=== PATIENT | female | born 1995 | race American Indian/Alaskan Native ===

== ENCOUNTER 2020-05-09 20:58 | Outpatient (CLI) | payer MEDICAID ==
[2020-05-09] MEDS ORDERED: LACTATED RINGERS 1,000 ML IV ONE (21:20)
[2020-05-09 22:14] LABS: Bilirubin,Urine NEG (Negative); Blood,Urine SM (Negative); Color,Urine Yellow (Yellow)
[2020-05-09 22:19] LABS: Mucus,Urine 2+ /HPF
[2020-05-09 22:55] VITALS: BP 146/87
--- NOTE | 2020-05-10 00:05 | Event Note ---
Date: 05/10/20 Provider was informed of pt blood pressures after pt had been discharged. Pt will need to return to the hospital for evaluation of elevated blood pressures and possible admission for 24hr urine collection if bps still elevated. This was not related to provider at time pt was presented by triage nurse hence pt being discharged. Review of the chart noted all blood pressures were elevated.
== END 2020-05-09 23:30 | disposition home or self-care (01) ==
LOC: TRG 20:58 → APU 21:01 → TRG 23:30
PROVIDERS: ATTEND Obstetrics & Gynecology
DX: O26.893 Other specified pregnancy related conditions, third trimester (principal); R10.30 Lower abdominal pain, unspecified; M54.5 Low back pain; R03.0 Elevated blood-pressure reading, without diagnosis of hypertension; O47.03 False labor before 37 completed weeks of gestation, third trimester; Z3A.36 36 weeks gestation of pregnancy
CPT/HCPCS: 59025; 81001; 87086; 96360; J7120; Q0177

== ENCOUNTER 2020-05-25 16:44 | Inpatient (IN) | payer MEDICAID ==
[2020-05-25] MEDS ORDERED: fentaNYL 100 MCG/2 ML INJ IV PRN (18:38)
[2020-05-25] MEDS ORDERED: MINERAL OIL 30 ML ORAL LIQD PO PRN (18:38)
[2020-05-25] MEDS ORDERED: DINOPROSTONE 10 MG VAG SUPP VG NR (18:38)
[2020-05-25] MEDS ORDERED: miSOPROStol 200 MCG TAB PR PRN (18:38)
[2020-05-25] MEDS ORDERED: TERBUTALINE 1 MG/1 ML INJ SUB-Q PRN (18:38)
[2020-05-25] MEDS ORDERED: METHYLERGONOVINE MALEATE 0.2 MG/ML VIAL IM PRN (18:38)
[2020-05-25] MEDS ORDERED: ePHEDrine SULFATE 50 MG/1 ML INJ IV PRN (18:38)
[2020-05-25] MEDS ORDERED: ONDANSETRON 4 MG/2 ML INJ IV PRN (18:38)
[2020-05-25] MEDS ORDERED: PROMETHAZINE 25 MG TAB PO PRN (18:38)
[2020-05-25] MEDS ORDERED: NALOXONE 0.4 MG/1 ML INJ IV PRN (18:38)
[2020-05-25] MEDS ORDERED: OXYTOCIN 10 UNIT/1 ML INJ IM PRN (18:38)
[2020-05-25] MEDS ORDERED: CARBOPROST TROMETHAMINE 250 MCG/1 ML INJ IM PRN (18:38)
[2020-05-25] MEDS ORDERED: LOPERAMIDE 2 MG CAP PO PRN (18:38)
[2020-05-25] MEDS ORDERED: ACETAMINOPHEN 325 MG TAB PO PRN (18:38)
--- NOTE | 2020-05-25 18:38 | History and Physical Report ---
History of Present Illness Date of examination: 05/25/20 (24 hr urine total protein result of 461 in the office, elevated BP's) Date of admission: 05/25/2020 Chief complaint: I was told to come because I had too much protein in my urine. History of present illness: Called and told to come in because of 24 hr urine total protein result of 461 and elevated blood pressures. EDC Confirmation: 06/03/2020 Gestational Age: 38.5 wks on admission. Past History : 2 Term Births: 0 Premature Births: 1 Living Children: 1 Para: 1 Mult. Births: 0 Prev : 0 Aborta: 0 Elect. Ab: 0 Spont. Ab: 0 Ectopics: 0 # 1 Delivery date: 2018 Weeks Gestation: 34+0 labor: yes Delivery type: Delivery location: [facility] [place] Infant Sex: Male weight: 4#3 Comments: PPROM Past Medical History: Negative Past Medical History Past Surgical History: negative Past Medical History Anesthesia Complications: negative Anemia: negative Autoimmune Disorder: negative Bleeding Disorder: negative Blood Transfusions: negative Breast Disease: negative Diabetes: negative Heart Disease: negative Hypertension: negative Hepatitis/Liver Disease: negative Kidney Disease/UTI: negative Neurologic/Epilepsy/Migraines: negative Phlebitis/Varicosities: negative Psychiatric: negative Pulmonary Disease/Asthma: negative Thyroid Disease: negative Hospitalizations: negative Surgery (Non-metal bumper): negative Abnormal PAP: negative HITESH Exposure: negative Infertility: negative Uterine Anomaly: negative Uterine Surgery (not C/S): negative Other Gynecologic Problems: negative Infection History Hx of STD: none HIV Risk Eval: no Hepatitis B Risk Eval: low risk Personal hx. of genital herpes: no Partner hx. of genital herpes: no Rash, Viral, or Febrile illness since last LMP? no Varicella/Chicken Pox Status: Immunized Genetic History Congenital Heart Defect: Mom: no Dad: no Rima Disease: Mom: no Dad: no Thalassemia Mom: no Dad: no Neural Tube Defect Mom: no Dad: no Down's Syndrome Mom: no Dad: no Gonzalo-Sachs Mom: no Dad: no Sickle Cell Disease/Trait Mom: no Dad: no Hemophilia Mom: no Dad: no Muscular Dystrophy Mom: no Dad: no Cystic Fibrosis Mom: no Dad: no [place] Chorea Mom: no Dad: no Mental Retardation Mom: no Dad: no Fragile X Mom: no Dad: no Other Genetic/Chromosomal Disorder Mom: no Dad: no Child w/other defect Mom: no Dad: no Enviromental Exposures Xray Exposure: no Medication, drug, or alcohol use since LMP: no Chemical/Other Exposure: no Exposure to Cat Liter: no Hx of Parvovirus (Fifth Disease): no Occupational Exposure to Children: none Current Allergies: * TYLENOL BRAND ? (Critical) Past History Past Medical History: no pertinent history Past Surgical History: no surgical history Family/Genetic History: none Social history: no significant social history - Obstetrical History Expected Date of Delivery: 06/03/20 Actual Gestation: 38 Week(s) 5 Day(s) : 2 Para: 1 Hx # Term Pregnancies: 0 Number of Pregnancies: 1 Spontaneous Abortions: 0 Induced : 0 Number of Living Children: 1 Medications and Allergies Allergies Allergy/AdvReac Type Severity Reaction Status Date / Time acetaminophen [From Tylenol] Allergy Hives Verified 05/09/20 21:20 Home Medications Medication Instructions Recorded Confirmed Last Taken Type No Known Home Medications [No 05/25/20 05/25/20 Unknown History Reported Home Medications] Review of Systems All systems: negative - Vital Signs Vital signs: Vital Signs Pulse BP 75 166/89 05/25/20 17:28 05/25/20 17:28 Temp Pulse Resp BP Pulse Ox 98.9 F 82 157/86 05/25/20 17:30 05/25/20 18:22 05/25/20 18:22 Pt denies PATINO, blurred vision, spots before her eyes, chest pain, shortness of breath, and upper abdominal pain. - Physical Exam Breasts: Positive: deferred Cardiovascular: Regular rate Lungs: Positive: Normal air movement Abdomen: Positive: normal appearance, soft Uterus: Positive: normal size (For 38 wks gestation. ) Extremities: Positive: normal Deep Tendon Reflex Grade: Normal +2 - Obstetrical FHR: category 1 Cervical Dilatation: 1 (per digital photographic printer) Cervical Effacement Percentage: 20 station: -3 Uterine Contraction Pattern: Irregular Uterine Tone Measurement Phase: Resting Uterine Contraction Intensity: Mild Results Result Diagrams: 05/25/20 19:16 05/25/20 18:38 GBS NEGATIVE HBsAg Screen Negative Negative *1 RPR Non Reactive Non Reactive *2 Rubella Antibodies, IgG 1.40 index Immune >0.99 *3 Non-immune <0.90 Equivocal 0.90 - 0.99 Immune >0.99 ABO Grouping O *4 Rh Factor Negative *5 Antibody Screen Negative Negative *6 Tests: (3) HB Solu + Rflx Fra (991972) Hemoglobin (Hgb) Solubility Negative Negative *55 Tests: (4) HIV Ag/Ab with Reflex (235182) HIV Screen 4th Generation wRfx Non Reactive Non Reactive *56 Tests: (5) HCV Ab w/Rflx to Verification ([id number]) ! HCV Ab <0.1 s/co ratio 0.0-0.9 *57 Tests: (6) Comment: ([id number]) ! Comment: SPRCS *58 Non reactive HCV antibody screen is consistent with no HCV infection, unless recent infection is suspected or other evidence exists to indicate HCV infection. Assessment and Plan - Patient Problems (1) Pre-eclampsia in third trimester Onset Date: ~05/25/20 Current Visit: Yes Status: Acute Plan to address problem: Admit to labor and delivery for IOL. Draw Pre eclampsia labs. Cervidil to start IOL. Will hold magnesium infusion for now. (2) with 38 completed weeks gestation Current Visit: Yes Status: Acute Plan to address problem: Continuous EFM.
[2020-05-25] MEDS ORDERED: LACTATED RINGERS 1,000 ML IV SCH (18:45)
[2020-05-25] MEDS ORDERED: OXYTOCIN DRIP 30 UNITS/500 ML BAG IV SCH (19:00)
[2020-05-25 19:25] LABS: Hematocrit 33.3 % (30.3-42.9); Hemoglobin 11.3 gm/dl (10.1-14.3); Mean Corpuscular HGB Conc 34 % (30-34); Mean Corpuscular Volume 84 fl (79-97); Platelet Count 161 K/mm3 (140-440); Red Blood Count 3.98 M/mm3 (3.65-5.03); Red Cell Distribution Width 13.8 % (13.2-15.2)
[2020-05-25] MEDS ORDERED: hydrALAZINE 20 MG/1 ML INJ IV PRN ×2 (19:49→21:10)
[2020-05-25 19:50] LABS: Blood Urea Nitrogen 6 mg/dL (7-17); Hemolysis Index 1; Uric Acid 5.3 mg/dL (3.5-7.6)
[2020-05-25 19:51] LABS: BUN/Creatinine Ratio 12
[2020-05-25 20:06] LABS: Alanine Aminotransferase 14 units/L (7-56)
[2020-05-25] MEDS: LACTATED RINGERS 1,000 ML IV SCH ×2 (21:11→23:48)
[2020-05-25] MEDS ORDERED: POTASSIUM CHLORIDE ER 20 MEQ TAB PO ONE (21:30)
--- NOTE | 2020-05-25 22:28 | Ultrasound Report ---
US OB limited INDICATION: Evaluate presentation. COMPARISON: None available. FINDINGS: A single live intrauterine is seen in cephalic presentation with a heart rate of 141 bpm. IMPRESSION: Cephalic presentation of a single live intrauterine . Signer Name: Alo Loomis MD Signed: 05/25/2020 10:24 PM Workstation Name: [id number]
[2020-05-26] MEDS ORDERED: NALOXONE 2 MG/2 ML INJ IV PRN (02:17)
[2020-05-26] MEDS ORDERED: ePHEDrine SULFATE 50 MG/1 ML INJ IV PRN (02:17)
--- NOTE | 2020-05-26 02:19 | Anesthesia Consultation ---
Anesthesia Consult and Med Hx Date of service: 05/26/20 - Airway Anesthetic Teeth Evaluation: Good ROM Head & Neck: Adequate Mental/Hyoid Distance: Adequate Mallampati Class: Class II Intubation Access Assessment: Probably Good - Pulmonary Exam CTA: Yes - Cardiac Exam Cardiac Exam: RRR - Pre-Operative Health Status ASA Pre-Surgery Classification: ASA3 Proposed Anesthetic Plan: Epidural - Pulmonary Hx Asthma: No COPD: No Hx Pneumonia: No - Cardiovascular System Hx Hypertension: Yes - Central Nervous System Hx Seizures: No Hx Psychiatric Problems: No - Endocrine Hx Renal Disease: No Hx End Stage Renal Disease: No Hx Hypothyroidism: No Hx Hyperthyroidism: No - Hematic Hx Anemia: No Hx Sickle Cell Disease: No - Other Systems Hx Alcohol Use: No
[2020-05-26] MEDS ORDERED: OXYTOCIN DRIP 30,000 MILLIUNITS/500 ML BAG IV ONE (02:35)
--- NOTE | 2020-05-26 02:35 | Progress Note ---
Assessment and Plan A: 24 y.o. @ 38.6 wks, IOL d/t pre eclampsia. Cervical exam: /2. SROM @ 0120 am for clear fluid. P: Pt sitting up for epidural placement. Pitocin per protocol. Anticipate . - Patient Problems (1) Pre-eclampsia in third trimester Onset Date: ~05/25/20 Current Visit: Yes Status: Acute (2) with 38 completed weeks gestation Current Visit: Yes Status: Acute Subjective - Subjective Date of service: 05/26/20 Principal diagnosis: IUP @ 38.6 wks, IOL d/t pre eclampsia Patient reports: new complaints, loss of fluid (SROM clear fluid @ 0120 am.), contractions Objective - Vital Signs Vital Signs: Vital Signs - 12hr 05/25/20 05/25/20 05/25/20 17:28 17:30 18:22 Temperature 98.9 F Pulse Rate 75 82 Blood Pressure 166/89 157/86 O2 Sat by Pulse Oximetry 05/25/20 05/25/20 05/25/20 20:15 20:54 21:00 Temperature 98.4 F Pulse Rate 68 77 Blood Pressure 128/70 O2 Sat by Pulse 100 Oximetry 05/25/20 05/25/20 05/25/20 21:05 21:10 21:15 Temperature Pulse Rate 93 H 71 77 Blood Pressure O2 Sat by Pulse 100 100 100 Oximetry 05/25/20 05/25/20 05/25/20 21:20 21:25 21:30 Temperature Pulse Rate 82 75 72 Blood Pressure 151/86 O2 Sat by Pulse 100 100 100 Oximetry 05/25/20 05/25/20 05/25/20 21:35 21:40 21:45 Temperature Pulse Rate 87 70 80 Blood Pressure O2 Sat by Pulse 100 100 100 Oximetry 05/25/20 05/25/20 05/25/20 21:50 21:54 21:55 Temperature Pulse Rate 73 78 77 Blood Pressure 141/81 O2 Sat by Pulse 99 99 Oximetry 05/25/20 05/25/20 05/25/20 22:00 22:05 22:10 Temperature Pulse Rate 87 72 70 Blood Pressure O2 Sat by Pulse 100 100 100 Oximetry 05/25/20 05/25/20 05/25/20 22:15 22:20 22:24 Temperature Pulse Rate 72 108 H 84 Blood Pressure 139/79 O2 Sat by Pulse 100 100 Oximetry 05/25/20 05/25/20 05/25/20 22:25 22:30 22:35 Temperature Pulse Rate 89 67 69 Blood Pressure O2 Sat by Pulse 100 100 100 Oximetry 05/25/20 05/25/20 05/25/20 22:40 22:45 22:50 Temperature Pulse Rate 72 75 80 Blood Pressure O2 Sat by Pulse 100 100 100 Oximetry 05/25/20 05/25/20 05/25/20 22:54 22:55 23:00 Temperature Pulse Rate 76 73 84 Blood Pressure 137/81 O2 Sat by Pulse 100 100 Oximetry 05/25/20 05/25/20 05/25/20 23:05 23:10 23:48 Temperature Pulse Rate 77 75 81 Blood Pressure 156/89 O2 Sat by Pulse 100 100 Oximetry 05/25/20 05/25/20 05/25/20 23:49 23:54 23:55 Temperature Pulse Rate 73 73 75 Blood Pressure 153/82 145/83 O2 Sat by Pulse 99 100 Oximetry 05/25/20 05/26/20 05/26/20 23:59 00:04 00:09 Temperature Pulse Rate 80 77 77 Blood Pressure O2 Sat by Pulse 100 100 100 Oximetry 05/26/20 05/26/20 05/26/20 00:14 00:15 00:19 Temperature 97.9 F Pulse Rate 74 82 Blood Pressure O2 Sat by Pulse 100 99 Oximetry 05/26/20 05/26/20 05/26/20 00:21 00:24 00:29 Temperature Pulse Rate 86 91 H 82 Blood Pressure O2 Sat by Pulse 90 99 99 Oximetry 05/26/20 05/26/20 05/26/20 00:34 00:39 00:44 Temperature Pulse Rate 73 73 86 Blood Pressure O2 Sat by Pulse 98 98 99 Oximetry 05/26/20 05/26/20 05/26/20 00:49 00:54 00:59 Temperature Pulse Rate 82 83 96 H Blood Pressure O2 Sat by Pulse 98 99 99 Oximetry 05/26/20 05/26/20 05/26/20 01:04 01:09 01:14 Temperature Pulse Rate 86 84 80 Blood Pressure O2 Sat by Pulse 99 99 99 Oximetry 05/26/20 05/26/20 05/26/20 01:38 01:43 01:48 Temperature Pulse Rate 89 83 92 H Blood Pressure O2 Sat by Pulse 100 100 100 Oximetry 05/26/20 05/26/20 05/26/20 01:53 01:58 02:03 Temperature Pulse Rate 80 78 72 Blood Pressure O2 Sat by Pulse 100 99 100 Oximetry 05/26/20 05/26/20 05/26/20 02:08 02:13 02:18 Temperature Pulse Rate 69 72 72 Blood Pressure O2 Sat by Pulse 100 100 100 Oximetry 05/26/20 05/26/20 05/26/20 02:22 02:23 02:24 Temperature Pulse Rate 68 68 67 Blood Pressure 172/89 O2 Sat by Pulse 100 91 Oximetry 05/26/20 02:28 Temperature Pulse Rate 80 Blood Pressure O2 Sat by Pulse 100 Oximetry - Exam Breasts: deferred Abdomen: Present: normal appearance Vulva: both: normal Uterus: Present: normal FHR: category 1 Uterine Contraction Monitor Mode: External Cervical Dilatation: 4 Cervical Effacement Percentage: 70 station: -2 Uterine Contraction Pattern: Regular Uterine Tone Measurement Phase: Resting Uterine Contraction Intensity: Moderate - Labs Labs: Abnormal Labs 05/25/20 18:38 Sodium 134 L Potassium 3.0 L BUN 6 L Creatinine 0.5 L Laboratory Results - last 24 hr 05/25/20 05/25/20 05/25/20 18:38 18:38 19:05 WBC RBC Hgb Hct MCV MCH MCHC RDW Plt Count Sodium 134 L Potassium 3.0 L Chloride 98.4 Carbon Dioxide 23 Anion Gap 16 BUN 6 L Creatinine 0.5 L Estimated GFR > 60 BUN/Creatinine Ratio 12 Glucose 75 Uric Acid 5.3 Calcium 9.0 Magnesium 1.70 AST 25 ALT 14 Syphilis IgG Antibody Nonreactive Blood Type Antibody Screen 05/25/20 05/25/20 19:06 19:16 WBC 11.0 RBC 3.98 Hgb 11.3 Hct 33.3 MCV 84 MCH 28 MCHC 34 RDW 13.8 Plt Count 161 Sodium Potassium Chloride Carbon Dioxide Anion Gap BUN Creatinine Estimated GFR BUN/Creatinine Ratio Glucose Uric Acid Calcium Magnesium AST ALT Syphilis IgG Antibody Blood Type O NEGATIVE Antibody Screen Negative
--- NOTE | 2020-05-26 02:48 | Progress Note ---
Labor Epidural - Labor Epidural Start Time: 02:33 Stop Time: 02:39 Performed by:: JAIRON JOHNSON Procedure: Patient is requesting epidural for labor pain. H&P, and labs reviewed. Procedure explained, questions answered, consent obtained. Patient in sitting position with blood pressure cuff and pulse ox on and working. Timeout performed immediately before start of procedure. Sterile chlorahexadine 0.5% prep/drape. 3 mL 1% lidocaine skin wheal at L[3]-L[4]. 18-gauge Tuohy epidural needle advanced to [id number] with saline at [7] cm. Epidural dexmedetomidine [30] mcg administered. Epidural catheter advanced to [12] cm, positive for blood. Inserted at L4-5, catheter advanced to 12 cm, negative for blood and csf, negative test dose 3 ml 1.5% lidocaine with epinephrine. Sterile steri-strips and tegaderm applied, followed by tape reinforcement. Patient tolerated procedure well.
[2020-05-26] MEDS ORDERED: fentaNYL-BUPIV 2 MCG/ML-0.125% 200 MCG/100 ML BAG EPIDURAL SCH (03:00)
--- NOTE | 2020-05-26 04:44 | Progress Note ---
Assessment and Plan A: 24 y.o. @ 38.6 wks, IOL d/t pre eclampsia. Cervical exam . FSE and IUPC placed. P: Initiate Pitocin. Continue to monitor blood pressures. Anticipate . - Patient Problems (1) Pre-eclampsia in third trimester Onset Date: ~05/25/20 Current Visit: Yes Status: Acute (2) with 38 completed weeks gestation Current Visit: Yes Status: Acute Subjective - Subjective Date of service: 05/26/20 (Internals placed) Principal diagnosis: IUP @ 38.6 wks, IOL d/t pre eclampsia Objective - Vital Signs Vital Signs: Vital Signs - 12hr 05/25/20 05/25/20 05/25/20 17:28 17:30 18:22 Temperature 98.9 F Pulse Rate 75 82 Blood Pressure 166/89 157/86 O2 Sat by Pulse Oximetry 05/25/20 05/25/20 05/25/20 20:15 20:54 21:00 Temperature 98.4 F Pulse Rate 68 77 Blood Pressure 128/70 O2 Sat by Pulse 100 Oximetry 05/25/20 05/25/20 05/25/20 21:05 21:10 21:15 Temperature Pulse Rate 93 H 71 77 Blood Pressure O2 Sat by Pulse 100 100 100 Oximetry 05/25/20 05/25/20 05/25/20 21:20 21:25 21:30 Temperature Pulse Rate 82 75 72 Blood Pressure 151/86 O2 Sat by Pulse 100 100 100 Oximetry 05/25/20 05/25/20 05/25/20 21:35 21:40 21:45 Temperature Pulse Rate 87 70 80 Blood Pressure O2 Sat by Pulse 100 100 100 Oximetry 05/25/20 05/25/20 05/25/20 21:50 21:54 21:55 Temperature Pulse Rate 73 78 77 Blood Pressure 141/81 O2 Sat by Pulse 99 99 Oximetry 05/25/20 05/25/20 05/25/20 22:00 22:05 22:10 Temperature Pulse Rate 87 72 70 Blood Pressure O2 Sat by Pulse 100 100 100 Oximetry 05/25/20 05/25/20 05/25/20 22:15 22:20 22:24 Temperature Pulse Rate 72 108 H 84 Blood Pressure 139/79 O2 Sat by Pulse 100 100 Oximetry 05/25/20 05/25/20 05/25/20 22:25 22:30 22:35 Temperature Pulse Rate 89 67 69 Blood Pressure O2 Sat by Pulse 100 100 100 Oximetry 05/25/20 05/25/20 05/25/20 22:40 22:45 22:50 Temperature Pulse Rate 72 75 80 Blood Pressure O2 Sat by Pulse 100 100 100 Oximetry 05/25/20 05/25/20 05/25/20 22:54 22:55 23:00 Temperature Pulse Rate 76 73 84 Blood Pressure 137/81 O2 Sat by Pulse 100 100 Oximetry 05/25/20 05/25/20 05/25/20 23:05 23:10 23:48 Temperature Pulse Rate 77 75 81 Blood Pressure 156/89 O2 Sat by Pulse 100 100 Oximetry 05/25/20 05/25/20 05/25/20 23:49 23:54 23:55 Temperature Pulse Rate 73 73 75 Blood Pressure 153/82 145/83 O2 Sat by Pulse 99 100 Oximetry 05/25/20 05/26/20 05/26/20 23:59 00:04 00:09 Temperature Pulse Rate 80 77 77 Blood Pressure O2 Sat by Pulse 100 100 100 Oximetry 05/26/20 05/26/20 05/26/20 00:14 00:15 00:19 Temperature 97.9 F Pulse Rate 74 82 Blood Pressure O2 Sat by Pulse 100 99 Oximetry 05/26/20 05/26/20 05/26/20 00:21 00:24 00:29 Temperature Pulse Rate 86 91 H 82 Blood Pressure O2 Sat by Pulse 90 99 99 Oximetry 05/26/20 05/26/20 05/26/20 00:34 00:39 00:44 Temperature Pulse Rate 73 73 86 Blood Pressure O2 Sat by Pulse 98 98 99 Oximetry 05/26/20 05/26/20 05/26/20 00:49 00:54 00:59 Temperature Pulse Rate 82 83 96 H Blood Pressure O2 Sat by Pulse 98 99 99 Oximetry 05/26/20 05/26/20 05/26/20 01:04 01:09 01:14 Temperature Pulse Rate 86 84 80 Blood Pressure O2 Sat by Pulse 99 99 99 Oximetry 05/26/20 05/26/20 05/26/20 01:38 01:43 01:48 Temperature Pulse Rate 89 83 92 H Blood Pressure O2 Sat by Pulse 100 100 100 Oximetry 05/26/20 05/26/20 05/26/20 01:53 01:58 02:03 Temperature Pulse Rate 80 78 72 Blood Pressure O2 Sat by Pulse 100 99 100 Oximetry 05/26/20 05/26/20 05/26/20 02:08 02:13 02:18 Temperature Pulse Rate 69 72 72 Blood Pressure O2 Sat by Pulse 100 100 100 Oximetry 05/26/20 05/26/20 05/26/20 02:22 02:23 02:24 Temperature Pulse Rate 68 68 67 Blood Pressure 172/89 O2 Sat by Pulse 100 91 Oximetry 05/26/20 05/26/20 05/26/20 02:28 02:33 02:37 Temperature Pulse Rate 80 82 86 Blood Pressure 160/97 O2 Sat by Pulse 100 100 Oximetry 05/26/20 05/26/20 05/26/20 02:38 02:39 02:41 Temperature Pulse Rate 81 84 78 Blood Pressure 155/91 159/92 O2 Sat by Pulse 100 Oximetry 05/26/20 05/26/20 05/26/20 02:44 02:45 02:47 Temperature Pulse Rate 73 74 67 Blood Pressure 167/95 158/90 151/90 O2 Sat by Pulse 100 Oximetry 05/26/20 05/26/20 05/26/20 02:49 02:54 02:55 Temperature Pulse Rate 72 72 71 Blood Pressure 169/95 O2 Sat by Pulse 100 100 Oximetry 05/26/20 05/26/20 05/26/20 02:59 03:00 03:04 Temperature Pulse Rate 70 68 64 Blood Pressure 163/87 O2 Sat by Pulse 100 100 Oximetry 05/26/20 05/26/20 05/26/20 03:05 03:09 03:14 Temperature Pulse Rate 63 74 70 Blood Pressure 160/90 153/87 O2 Sat by Pulse 100 100 Oximetry 05/26/20 05/26/20 05/26/20 03:15 03:19 03:21 Temperature Pulse Rate 77 82 63 Blood Pressure 164/95 158/84 O2 Sat by Pulse 100 Oximetry 05/26/20 05/26/20 05/26/20 03:22 03:24 03:29 Temperature Pulse Rate 70 66 63 Blood Pressure O2 Sat by Pulse 84 100 100 Oximetry 05/26/20 05/26/20 05/26/20 03:34 03:35 03:39 Temperature Pulse Rate 65 61 68 Blood Pressure 146/91 O2 Sat by Pulse 100 100 Oximetry 05/26/20 05/26/20 05/26/20 03:44 03:49 03:54 Temperature Pulse Rate 66 65 72 Blood Pressure O2 Sat by Pulse 100 100 100 Oximetry 05/26/20 05/26/20 05/26/20 03:59 04:04 04:06 Temperature Pulse Rate 65 66 66 Blood Pressure 143/85 O2 Sat by Pulse 100 100 Oximetry 05/26/20 05/26/20 05/26/20 04:09 04:14 04:19 Temperature Pulse Rate 68 75 71 Blood Pressure O2 Sat by Pulse 100 100 100 Oximetry 05/26/20 05/26/20 05/26/20 04:24 04:29 04:34 Temperature Pulse Rate 67 67 59 L Blood Pressure O2 Sat by Pulse 100 100 100 Oximetry 05/26/20 05/26/20 04:37 04:39 Temperature Pulse Rate 78 61 Blood Pressure 146/92 O2 Sat by Pulse 100 Oximetry - Exam Breasts: deferred Abdomen: Present: normal appearance Vulva: both: normal Uterus: Present: normal FHR: category 1 Uterine Contraction Monitor Mode: Internal Cervical Dilatation: 5 (FSE, IUPC placed) Cervical Effacement Percentage: 70 station: -1 Uterine Contraction Pattern: Regular Uterine Tone Measurement Phase: Resting Uterine Contraction Intensity: Moderate - Labs Labs: Abnormal Labs 05/25/20 18:38 Sodium 134 L Potassium 3.0 L BUN 6 L Creatinine 0.5 L Laboratory Results - last 24 hr 05/25/20 05/25/20 05/25/20 18:38 18:38 19:05 WBC RBC Hgb Hct MCV MCH MCHC RDW Plt Count Sodium 134 L Potassium 3.0 L Chloride 98.4 Carbon Dioxide 23 Anion Gap 16 BUN 6 L Creatinine 0.5 L Estimated GFR > 60 BUN/Creatinine Ratio 12 Glucose 75 Uric Acid 5.3 Calcium 9.0 Magnesium 1.70 AST 25 ALT 14 Syphilis IgG Antibody Nonreactive Blood Type Antibody Screen 05/25/20 05/25/20 19:06 19:16 WBC 11.0 RBC 3.98 Hgb 11.3 Hct 33.3 MCV 84 MCH 28 MCHC 34 RDW 13.8 Plt Count 161 Sodium Potassium Chloride Carbon Dioxide Anion Gap BUN Creatinine Estimated GFR BUN/Creatinine Ratio Glucose Uric Acid Calcium Magnesium AST ALT Syphilis IgG Antibody Blood Type O NEGATIVE Antibody Screen Negative
--- NOTE | 2020-05-26 06:22 | Procedure Note ---
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 Pt was 10/100/+1. viable female infant over intact perineum. Loose nuchal cord around body, easily reduced. Infant to mother's abdomen for skin ti skin. Cord cut and clamped by family member after cessation of pulse. Spontaneous delivery of placenta, complete, intact, 3 vessels noted. Placenta sent to pathology d/t pre eclampsia. Perineum and vagina inspected, no lacerations noted. EBL 400ml. Apgars 8,9. Infant weight 5-13. Instruments and sponges counted X2 and correct X2. Infant and mother left in stable condition in the care of RN. - Infant A at 1 minute: 8 at 5 minutes: 9 Infant Gender: Female (Nova, 5-13)
[2020-05-26] MEDS ORDERED: BENZOCAINE/MENTHOL 20/0.5% TOP SPRAY 56 GM TP PRN (06:23)
[2020-05-26] MEDS ORDERED: LANOLIN/ZINC/DIMETHICONE (LANSINOH) 7 GM TP PRN ×2 (06:23)
[2020-05-26] MEDS ORDERED: WITCH HAZEL/ GLYCERIN PAD TP PRN (06:23)
[2020-05-26] MEDS ORDERED: MAGNESIUM HYDROXIDE (MOM) ORAL LIQD UDC PO PRN (06:23)
[2020-05-26] MEDS ORDERED: ONDANSETRON 4 MG/2 ML INJ IV PRN (06:23)
[2020-05-26] MEDS ORDERED: PROMETHAZINE 25 MG RECT SUPP PR PRN (06:23)
[2020-05-26] MEDS ORDERED: diphenhydrAMINE 25 MG CAP PO PRN (06:23)
[2020-05-26] MEDS ORDERED: PROMETHAZINE 25 MG TAB PO PRN (06:23)
[2020-05-26] MEDS ORDERED: OXYTOCIN DRIP 30 UNITS/500 ML BAG IV SCH (07:00)
[2020-05-26] MEDS ORDERED: MAGNESIUM SULFATE 4 GM/100 ML BAG IV SCH (07:30)
[2020-05-26] MEDS ORDERED: CALCIUM GLUCONATE 1000 MG/10 ML INJ IV PRN (08:00)
[2020-05-26] MEDS ORDERED: MAGNESIUM SULFATE 40GM/1000ML 40 GM/1,000 ML BAG IV SCH (08:00)
[2020-05-26 08:18] LABS: Hematocrit 31.5 % (30.3-42.9); Hemoglobin 10.3 gm/dl (10.1-14.3); Mean Corpuscular HGB Conc 33 % (30-34); Mean Corpuscular Volume 85 fl (79-97); Platelet Count 147 K/mm3 (140-440); Red Blood Count 3.71 M/mm3 (3.65-5.03); Red Cell Distribution Width 13.6 % (13.2-15.2)
[2020-05-26 08:28] LABS: Alanine Aminotransferase 12 units/L (7-56); Blood Urea Nitrogen 5 mg/dL (7-17); Calcium 8.6 mg/dL (8.4-10.2); Hemolysis Index 9
[2020-05-26 08:31] LABS: BUN/Creatinine Ratio 10
[2020-05-26] MEDS: LACTATED RINGERS 1,000 ML IV SCH ×2 (08:34→11:19)
[2020-05-26] MEDS: IBUPROFEN 800 MG TAB PO SCH ×3 (08:35→20:07)
[2020-05-26 10:18] LABS: Bacteria,Urine 1+ /HPF (Negative); Bilirubin,Urine NEG (Negative); Blood,Urine NEG (Negative); Color,Urine Yellow (Yellow); Mucus,Urine FEW /HPF; Protein,Urine <15 mg/dL mg/dL (Negative); Urobilinogen,Urine < 2.0 mg/dL (<2.0)
--- NOTE | 2020-05-26 11:39 | Event Note ---
Date: 05/26/20 b/p's reviewed, will start PO labetalol 200MG BID. RN informed.
[2020-05-26] MEDS: DOCUSATE SODIUM 100 MG CAP PO SCH ×2 (12:16→21:49)
[2020-05-26] MEDS: PRENATAL VIT27-FE FUMARATE-FOLIC ACID VIT TAB PO SCH (12:23)
[2020-05-26] MEDS ORDERED: LACTATED RINGERS 1,000 ML ONE (20:15)
[2020-05-27] MEDS ORDERED: DIPHtheria,PERTUSSIS(ACELL),TETANUS VACCINE/PF 0.5 ML VIAL IM ONE (06:00)
[2020-05-27] MEDS: IBUPROFEN 800 MG TAB PO SCH ×4 (06:42→21:01)
[2020-05-27] MEDS ORDERED: LACTATED RINGERS 1,000 ML ONE (06:49)
[2020-05-27] MEDS ORDERED: LACTATED RINGERS 1,000 ML IV SCH (07:00)
[2020-05-27] MEDS ORDERED: hydrALAZINE 20 MG/1 ML INJ ONE (07:26)
[2020-05-27] MEDS ORDERED: hydrALAZINE 20 MG/1 ML INJ IV SCH (07:30)
--- NOTE | 2020-05-27 07:47 | Progress Note ---
Assessment and Plan pt resting w/o complaints. H&H ordered for 0800. fundus firm, lochia scant. b/p 140's-170's/70-90's. urine output adequate. - Patient Problems (1) Pre-eclampsia in third trimester Onset Date: ~05/25/20 Current Visit: Yes Status: Acute Plan to address problem: d/c mag this morning and transfer to [facility] Labetalol increased to 300mg BID Continue close monitoring of patient's vs and for s/s pre-e (2) Spontaneous vaginal delivery Current Visit: Yes Status: Acute Plan to address problem: continue pathway Subjective - Subjective Date of service: 05/27/20 Principal diagnosis: day #1 s/p w/ pre-e Patient reports: appetite normal, pain well controlled, other (denies PATINO, visual changes or epigastric pain) : doing well, bottle feeding Objective - Vital Signs Latest vital signs: Vital Signs Temp Pulse Resp BP BP Pulse Ox 05/27/20 07:45 85 154/91 05/27/20 07:30 66 171/87 05/27/20 07:15 66 171/87 05/27/20 06:55 76 169/96 05/27/20 06:51 97.6 F 76 16 168/97 168/97 05/27/20 06:45 74 175/92 05/27/20 06:32 98.5 F 05/27/20 06:15 81 141/79 05/27/20 05:45 69 149/80 05/27/20 05:15 73 151/72 05/27/20 04:45 83 165/83 05/27/20 04:15 80 158/99 05/27/20 03:45 78 142/80 05/27/20 03:15 73 147/75 05/27/20 02:45 69 157/86 05/27/20 02:15 76 152/93 05/27/20 01:45 90 168/77 05/27/20 01:15 80 148/84 05/27/20 00:49 83 152/83 05/27/20 00:15 95 H 130/81 05/26/20 23:45 77 135/70 05/26/20 23:38 76 156/91 05/26/20 22:45 86 126/68 05/26/20 22:15 82 136/74 05/26/20 21:49 83 155/94 05/26/20 21:45 83 155/94 05/26/20 21:15 88 160/95 05/26/20 20:45 88 163/88 05/26/20 20:15 90 163/83 05/26/20 20:02 83 100 05/26/20 19:57 98 H 100 05/26/20 19:52 83 100 05/26/20 19:47 83 100 05/26/20 19:45 78 165/85 05/26/20 19:44 98.0 F 18 100 05/26/20 19:42 93 H 100 05/26/20 19:37 92 H 100 05/26/20 19:32 75 100 05/26/20 19:27 83 100 05/26/20 19:22 81 100 05/26/20 19:17 76 100 05/26/20 19:12 88 100 05/26/20 19:07 80 100 05/26/20 19:02 88 100 05/26/20 18:57 83 100 05/26/20 18:52 94 H 100 05/26/20 18:47 81 100 05/26/20 18:45 86 146/98 05/26/20 18:42 79 100 05/26/20 18:38 80 148/96 05/26/20 18:37 80 100 05/26/20 18:32 80 100 05/26/20 18:27 80 100 05/26/20 18:22 83 100 05/26/20 18:17 83 100 05/26/20 18:15 88 161/91 05/26/20 18:12 80 100 05/26/20 18:07 89 100 05/26/20 18:02 92 H 99 05/26/20 17:57 82 100 05/26/20 17:52 82 100 05/26/20 17:47 81 100 05/26/20 17:45 86 179/93 05/26/20 17:42 87 100 05/26/20 17:37 85 100 05/26/20 17:32 80 100 05/26/20 17:27 81 100 05/26/20 17:22 82 100 05/26/20 17:17 84 100 05/26/20 17:15 78 138/91 05/26/20 17:12 74 100 05/26/20 17:07 77 100 05/26/20 17:02 79 100 05/26/20 16:57 94 H 100 05/26/20 16:52 77 100 05/26/20 16:47 74 100 05/26/20 16:45 85 158/95 05/26/20 16:42 89 100 05/26/20 16:37 83 99 05/26/20 16:32 77 99 05/26/20 16:27 77 99 05/26/20 16:22 79 100 05/26/20 16:17 89 100 05/26/20 16:15 86 150/89 05/26/20 16:12 80 99 05/26/20 16:11 98.6 F 84 16 142/91 142/91 99 05/26/20 16:10 97.8 F 87 16 142/91 05/26/20 16:07 85 100 05/26/20 16:02 86 100 05/26/20 15:57 90 100 05/26/20 15:52 89 100 05/26/20 15:47 90 100 05/26/20 15:45 88 153/88 05/26/20 15:42 88 100 05/26/20 15:37 83 100 05/26/20 15:32 81 100 05/26/20 15:27 77 100 05/26/20 15:22 83 100 05/26/20 15:17 84 100 05/26/20 15:15 83 164/94 05/26/20 15:12 101 H 100 05/26/20 15:07 80 100 05/26/20 15:02 83 100 05/26/20 14:57 97 H 100 05/26/20 14:52 96 H 100 05/26/20 14:47 86 100 05/26/20 14:45 92 H 145/88 05/26/20 14:42 88 100 05/26/20 14:37 91 H 100 05/26/20 14:32 91 H 156/90 99 05/26/20 14:12 114 H 99 05/26/20 14:07 85 99 05/26/20 14:02 87 99 05/26/20 13:57 98 H 100 05/26/20 13:52 83 100 05/26/20 13:47 84 100 05/26/20 13:42 94 H 100 05/26/20 13:37 86 100 05/26/20 13:32 86 100 05/26/20 13:27 90 100 05/26/20 13:22 86 100 05/26/20 13:17 89 100 05/26/20 13:15 79 160/89 05/26/20 13:12 83 100 05/26/20 13:07 69 100 05/26/20 13:02 81 100 05/26/20 12:57 82 100 05/26/20 12:52 77 100 05/26/20 12:47 80 100 05/26/20 12:45 77 155/84 05/26/20 12:42 82 100 05/26/20 12:37 74 100 05/26/20 12:32 84 100 05/26/20 12:27 81 100 05/26/20 12:22 79 100 05/26/20 12:17 73 169/86 100 05/26/20 12:15 97.5 F L 69 169/86 05/26/20 12:12 75 100 05/26/20 12:07 82 100 05/26/20 12:02 73 100 05/26/20 11:57 86 100 05/26/20 11:51 93 H 100 05/26/20 11:47 79 100 05/26/20 11:45 85 166/99 05/26/20 11:42 78 100 05/26/20 11:37 78 100 05/26/20 11:31 81 100 05/26/20 11:27 76 100 05/26/20 11:22 74 100 05/26/20 11:17 79 100 05/26/20 11:16 76 148/88 05/26/20 11:14 73 162/84 05/26/20 11:12 77 100 05/26/20 11:09 82 155/96 05/26/20 11:07 79 100 05/26/20 11:06 54 L 92 05/26/20 10:58 82 148/71 05/26/20 10:54 80 156/72 05/26/20 10:49 79 156/89 05/26/20 10:34 86 173/112 05/26/20 10:28 95 H 143/79 05/26/20 10:23 88 141/83 05/26/20 10:20 104 H 100 05/26/20 10:18 80 144/82 05/26/20 10:15 86 100 05/26/20 10:13 95 H 154/92 05/26/20 10:10 81 99 05/26/20 10:08 72 152/83 05/26/20 10:05 71 99 05/26/20 10:03 95 H 136/88 05/26/20 10:00 72 99 05/26/20 09:58 73 137/79 05/26/20 09:55 70 99 05/26/20 09:53 85 148/81 05/26/20 09:50 102 H 100 05/26/20 09:48 80 153/80 05/26/20 09:45 79 99 05/26/20 09:43 85 142/73 05/26/20 09:40 76 99 05/26/20 09:38 77 140/69 05/26/20 09:35 81 99 05/26/20 09:33 80 136/66 05/26/20 09:30 84 100 05/26/20 09:28 75 146/81 05/26/20 09:25 72 99 05/26/20 09:23 82 146/81 05/26/20 09:20 76 100 05/26/20 09:18 77 145/77 05/26/20 09:15 75 100 05/26/20 09:13 73 155/85 05/26/20 09:10 69 100 05/26/20 09:08 68 161/95 05/26/20 09:05 79 99 05/26/20 09:03 82 155/85 05/26/20 09:00 77 99 05/26/20 08:58 78 156/89 05/26/20 08:55 88 99 05/26/20 08:53 90 152/82 05/26/20 08:50 84 99 05/26/20 08:48 86 146/80 05/26/20 08:45 90 99 05/26/20 08:43 85 150/81 05/26/20 08:40 78 100 05/26/20 08:38 79 157/84 05/26/20 08:35 70 100 05/26/20 08:30 73 100 05/26/20 08:26 78 171/90 05/26/20 08:25 84 100 03/06/21 08:22 74 178/86 05/26/20 08:20 64 99 05/26/20 08:15 69 99 05/26/20 08:10 70 99 05/26/20 08:07 69 147/78 05/26/20 08:05 68 99 05/26/20 08:00 74 99 05/26/20 07:55 78 100 05/26/20 07:52 68 154/92 05/26/20 07:50 62 99 Intake and Output 05/26/20 05/26/20 05/27/20 15:59 23:59 07:59 Intake Total 1000 Output Total 2350 4700 2750 Balance -1350 -4700 -2750 Intake: IV 1000 Lactated Ringers 1,000 ml 1000 @ 125 mls/hr IV DIRECT MARÍA ELENA Rx#:[id number] Output: Urine 2350 4700 2750 Indwelling Catheter 2200 4700 2450 Uretheral ([place]) 150 300 Other: Total, Output Amount 400 400 300 - Exam Breasts: Present: normal Cardiovascular: Present: Regular rate Lungs: Present: Clear to auscultation, Normal air movement Abdomen: Present: normal appearance, soft. Absent: distention, tenderness Vulva: both: normal Uterus: Present: normal, firm, fundal height below umbilicus Extremities: Present: normal Deep Tendon Reflex Grade: Normal +2 - Labs Labs: Abnormal lab results 05/26/20 05/26/20 05/26/20 Range/Units 07:42 07:42 12:01 WBC 16.4 H (4.5-11.0) K/mm3 Sodium 135 L (137-145) mmol/L Potassium 3.1 L (3.6-5.0) mmol/L BUN 5 L (7-17) mg/dL Creatinine 0.5 L (0.6-1.2) mg/dL Magnesium 3.20 H (1.7-2.3) mg/dL Total Protein 6.0 L (6.3-8.2) g/dL Albumin 3.0 L (3.9-5) g/dL 05/26/20 05/27/20 Range/Units 19:08 00:39 WBC (4.5-11.0) K/mm3 Sodium (137-145) mmol/L Potassium (3.6-5.0) mmol/L BUN (7-17) mg/dL Creatinine (0.6-1.2) mg/dL Magnesium 3.50 H 3.70 H (1.7-2.3) mg/dL Total Protein (6.3-8.2) g/dL Albumin (3.9-5) g/dL
[2020-05-27 09:47] LABS: Hematocrit 32.6 % (30.3-42.9)
[2020-05-27] MEDS: DOCUSATE SODIUM 100 MG CAP PO SCH ×2 (10:13→21:02)
[2020-05-27] MEDS: PRENATAL VIT27-FE FUMARATE-FOLIC ACID VIT TAB PO SCH (10:13)
--- NOTE | 2020-05-27 15:22 | Post Anesthesia Evaluation ---
- Post Anesthesia Evaluation Patient Participated: Yes Airway Patent: Yes Stable Respiratory Function: Yes Nausea/Vomiting: No Temp > 96.8F: Yes Pain Manageable: Yes Adequeate Hydration: Yes Anesthesia Complications: No Block Receding Appropriately: Yes
--- NOTE | 2020-05-28 06:12 | Discharge Summary ---
Providers - Providers Date of Admission: 05/25/20 18:38 Date of discharge: 05/28/20 (pt desires d/c) Attending physician: JANEE GOLDMAN Primary care physician: JANEE GOLDMAN Hospitalization Reason for admission: induction of labor (PreE), IUP at term Delivery: Episiotomy: none Laceration: none Incision: normal Other procedures: none complications: none Discharge diagnosis: IUP at term delivered baby: female Condition at discharge: Good Disposition: DC-01 TO HOME OR SELFCARE - Discharge Diagnoses (1) Spontaneous vaginal delivery Status: Acute Comment: RTO Thursday for BP check Plan - Discharge Medications Prescriptions: labetaloL [Labetalol 100mg TAB] 300 mg PO BID #90 tablet labetaloL [Labetalol 200mg TAB] 300 mg PO BID #60 tablet - Provider Discharge Summary Activity: routine, no sex for 6 weeks, no heavy lifting 4 weeks, no strenuous exercise Diet: routine Instructions: routine Additional instructions: [] Smoking cessation referral if applicable(refer to patient education folder for contact #) [] Refer to [facility] Book[facility] Call your doctor immediately for: * Fever > 100.5 * Heavy vaginal bleeding ( >1 pad per hour) * Severe persistent headache * Shortness of breath * Reddened, hot, painful area to leg or breast * Drainage or odor from incision. * Keep incision clean and dry at all times and follow doctor's instructions regarding bathing/showering - Follow up plan Follow up: JANEE GOLDMAN MD [Primary Care Provider] - 06/01/20 ((Congratulations! Please call [phone] to schedule your visit in 4 weeks and a blood pressure check on Thursday. Take medication as prescribed. Call with headache unrelieved with Tylenol, blurred vision, chest pain. Call with any concerns. )
[2020-05-28] MEDS: PRENATAL VIT27-FE FUMARATE-FOLIC ACID VIT TAB PO SCH (09:30)
[2020-05-28] MEDS: DOCUSATE SODIUM 100 MG CAP PO SCH (09:30)
[2020-05-28] MEDS: IBUPROFEN 800 MG TAB PO SCH (12:56)
[2020-05-28 16:08] VITALS: BP 149/88
== END 2020-05-28 16:20 | disposition home or self-care (01) | DRG 775 ==
LOC: TRG 16:44 → APU 16:45 → LD 18:28 → TRG 18:38 → OB 05-27 09:25
PROVIDERS: ADMIT Obstetrics & Gynecology; ATTEND Obstetrics & Gynecology
PROC: 10E0XZZ Delivery of Products of Conception, External Approach (ICD-10-PCS; principal; 2020-05-26)
PROC: 3E0R3BZ Introduction of Anesthetic Agent into Spinal Canal, Percutaneous Approach (ICD-10-PCS; 2020-05-26)
PROC: 00HU33Z Insertion of Infusion Device into Spinal Canal, Percutaneous Approach (ICD-10-PCS; 2020-05-26)
PROC: 3E0P7VZ Introduction of Hormone into Female Reproductive, Via Natural or Artificial Opening (ICD-10-PCS; 2020-05-26)
DX: O14.94 Unspecified pre-eclampsia, complicating childbirth (principal); Z3A.38 38 weeks gestation of pregnancy; Z37.0 Single live birth; Z20.822 Contact with and (suspected) exposure to COVID-19; Z88.6 Allergy status to analgesic agent
CPT/HCPCS: 36415; 59025; 59200; 76815; 80048; 80053; 81001; 82565; 83735; 84450; 84460; 84550; 85014; 85018; 85027; 86592; 86850; 86900; 86901; 88307; G0378; J0360; J2405; J2590; J3010; J3475; J7120; U0003

== ENCOUNTER 2020-11-02 07:14 | Day surgery (SDC) | payer MEDICAID ==
--- NOTE | 2020-11-02 07:46 | History and Physical Report ---
History of Present Illness Date of examination: 10/31/20 History of present illness: Patient has been reassessed/reevaluated. H&P has been reviewed. No interval changes. Patient desires sterilization. Discussed with various methods of contraceptives including abstinence, barrier and hormonal. Discussed oral, implantable, dermal, injectable,intravaginal and intrauterine methods. Patient declined temporary contraceptives. Discuss the permanency of sterilization. High risk of regret and 0.5 to 1% risk of failure. Questions answered Patient understands and desires to proceed. Vital Signs: Patient Profile: 25 Years Old Female Height: 57 inches Weight: 128 pounds BMI: 27.70 Temp: 97.6 degrees F BP sittin / 60 (left arm) Date of Last Pap Smear: 12/01/2019 Past History : 2 Term Births: 0 Premature Births: 1 Living Children: 2 Para: 2 Mult. Births: 0 Prev : 0 Aborta: 0 Elect. Ab: 0 Spont. Ab: 0 Ectopics: 0 # 1 Delivery date: 2018 Weeks Gestation: 34+0 labor: yes Delivery type: Delivery location: [facility] [place] Infant Sex: Male weight: 4#3 Comments: PPROM # 2 Delivery date: 05/26/2020 Weeks Gestation: 38.6 Delivery type: Vaginal Hours of labor: 6 Anesthesia type: epidural Delivery location: [facility] Infant Sex: female weight: 5.81 Name: Luiza Comments: pre-eclampsia/eclampsia PRIMARY CARE NURSE History Uterine Surgery (not C/S): negative Operations: negative Anesthesia Complications: negative Abnormal PAP: negative Uterine Anomaly: negative HITESH Exposure: negative Infertility: negative Infection History HIV Risk Eval: no Personal hx. of genital herpes: no Partner hx. of genital herpes: no Hx of STD: none Current Allergies (reviewed today): * TYLENOL BRAND ? (Critical) Past Medical History: Negative Past Medical History Past Surgical History: negative Family History Summary: Negative Social History: Reviewed history from 09/21/2020 and no changes required: Single Smoking History: Patient has never smoked. Risk Factors: Smoked Tobacco Use: Never smoker Smokeless Tobacco Use: Never Passive Smoke Exposure: no HIV High Risk Behavior: no Caffeine Use: 0 drinks per day Exercise: no Seatbelt Use: 100 % PAP Smear History: Date of Last PAP Smear: 12/01/2019 Alcohol Use: no Drug Use: no Review of Systems General Denies fever, chills, sweats, anorexia, fatigue, weakness, malaise, weight loss and sleep disorder. Denies vaginal discharge, incontinence, dysuria, hematuria, urinary frequency, amenorrhea, menorrhagia, abnormal vaginal bleeding, pelvic pain, genital sores, decreased libido, painful periods, painful sex, urinary urgency, hot flashes, vaginal dryness, vaginal itching and vaginal odor. CV Denies chest pains, palpitations, syncope, dyspnea on exertion, orthopnea, PND and peripheral edema. Resp Denies cough, dyspnea at rest, excessive sputum, hemoptysis, wheezing and pleurisy. GI Denies nausea, vomiting, diarrhea, constipation, change in bowel habits, abdominal pain, melena, hematochezia, jaundice, gas/bloating, indigestion/heartburn, dysphagia and odynophagia. Breast Denies left breast lump, right breast lump, nipple discharge, bloody discharge from nipple, breast pain, abnormal mammogram and breast enlargement. Psych Denies depression, anxiety, irritability and mood swings. Past History Past Medical History: No medical history, other Past Surgical History: No surgical history Social history: full code, other (SEE HPI FOR DETAILS) Family history: other (SEE HPI FOR DETAILS) Medications and Allergies Allergies Allergy/AdvReac Type Severity Reaction Status Date / Time acetaminophen [From Tylenol] Allergy Hives Verified 05/09/20 21:20 Home Medications Medication Instructions Recorded Confirmed Last Taken Type labetaloL [Labetalol 200mg TAB] 300 mg PO TID 10/19/20 10/19/20 Unknown History Review of Systems Constitutional: other (SEE HPI FOR DETAILS) Exam - Physical Exam Narrative exam: HEENT: normocephalic, no lesions or deformities Skin no ulcers, xanthomas Chest: respiratory effort normal, clear to auscultation CV: regular, normal S1-S2, no murmur, no rub, no gallop Abdomen: soft, non-tender, no masses, bowel sounds normal Neuro: no gross anomalities Extremities: no clubbing, cyanosis, or edema PRIMARY CARE NURSE Exams Vulva/Vagina: normal appearance, no discharge, lesions. No evidence of cystocele or rectocele. Cervix: normal appearance, no lesions, no discharge Uterus: normal position, midline, mobile Adnexae: no masses or tenderness Rectovaginal: exam defered Assessment and Plan - Patient Problems (1) Encounter for sterilization Current Visit: Yes Status: Acute Plan to address problem: Patient desires sterilization.Discuss the permanency of sterilization. High risk of regret and 0.5 to 1% risk of failure. Discussed options of tubal blockage and salpingectomy and it's possible benefit of preventing ovarian cancer and increased risks of bleeding during the procedure. Discuss the risks of the surgery including infection, bleeding possibly heavy enough to require a blood transfusion, possilble damage to bowel, bladder or ureter. Patient understands and desires to proceed with salpingectomy.
[2020-11-02] MEDS ORDERED: BUPIVACAINE/PF (0.5%) 5 MG/1 ML 30 ML VIAL INFILTRATI ONE ×2 (07:53→09:05)
[2020-11-02] MEDS ORDERED: LACTATED RINGERS 1,000 ML ONE (07:53)
[2020-11-02] MEDS ORDERED: BACTERIOSTATIC SODIUM CHLORIDE 0.9% 30 ML VIAL INFILTRATI ONE (07:53)
[2020-11-02] MEDS ORDERED: MAGNESIUM OXIDE 400 MG TAB PO NR (07:57)
[2020-11-02] MEDS ORDERED: HYDROmorphone 1 MG/1 ML INJ IV PRN ×2 (07:57)
[2020-11-02] MEDS ORDERED: ONDANSETRON 4 MG/2 ML INJ IV PRN (07:57)
--- NOTE | 2020-11-02 07:58 | Anesthesia Day of Surgery ---
Anesthesia Day of Surgery - Day of Surgery Patient Examined: Yes Patient H&P Reviewed: Yes Patient is NPO: Yes
--- NOTE | 2020-11-02 07:59 | Anesthesia Consultation ---
Anesthesia Consult and Med Hx Date of service: 11/02/20 - Airway Anesthetic Teeth Evaluation: Good ROM Head & Neck: Adequate Mental/Hyoid Distance: Adequate Mallampati Class: Class II Intubation Access Assessment: Good - Pre-Operative Health Status ASA Pre-Surgery Classification: ASA2 Proposed Anesthetic Plan: General - Pulmonary Hx Smoking: No Hx Asthma: No COPD: No Hx Pneumonia: No - Cardiovascular System Hx Hypertension: Yes (Labetalol prn when she gets a headache) - Central Nervous System Hx Seizures: No Hx Psychiatric Problems: No - Gastrointestinal Hx Gastroesophageal Reflux Disease: No - Endocrine Hx Renal Disease: No Hx End Stage Renal Disease: No Hx Hypothyroidism: No Hx Hyperthyroidism: No - Hematic Hx Anemia: No Hx Sickle Cell Disease: No - Other Systems Hx Alcohol Use: No Hx Obesity: No
[2020-11-02] MEDS ORDERED: MIDAZOLAM 2 MG/2 ML INJ IV NR (08:00)
[2020-11-02] MEDS ORDERED: CELECOXIB 200 MG CAP PO NR (08:00)
[2020-11-02] MEDS ORDERED: LACTATED RINGERS 1,000 ML IV SCH (08:00)
[2020-11-02] MEDS ORDERED: MIDAZOLAM 2 MG/2 ML INJ ONE (08:02)
[2020-11-02] MEDS ORDERED: propofoL 200 MG/20 ML VIAL IV ONE (08:15)
[2020-11-02] MEDS ORDERED: HYDROmorphone 1 MG/1 ML INJ ONE (08:15)
[2020-11-02] MEDS ORDERED: ROCURONIUM 50 MG/5 ML INJ IV ONE (08:16)
[2020-11-02] MEDS ORDERED: LIDOCAINE MPF (2%) 20 MG/1 ML VIAL 5 ML ONE (08:16)
[2020-11-02] MEDS ORDERED: KETOROLAC 30 MG/1 ML INJ ONE (08:58)
[2020-11-02] MEDS ORDERED: dexAMETHasone 20 MG/5 ML VIAL ONE (08:58)
[2020-11-02] MEDS ORDERED: ONDANSETRON 4 MG/2 ML INJ ONE (08:58)
[2020-11-02] MEDS ORDERED: SODIUM CHLORIDE 0.9% IRR 1,500 ML BOTTLE IR ONE (09:06)
[2020-11-02] MEDS ORDERED: NEOSTIGMINE 10MG/10 ML INJ MDV ONE (10:00)
[2020-11-02] MEDS ORDERED: GLYCOPYRROLATE 0.4 MG/2 ML INJ ONE (10:00)
[2020-11-02] MEDS ORDERED: cefTRIAXone/NS 1 GM/50 ML 1 GM/50 ML BAG IV SCH (10:00)
--- NOTE | 2020-11-02 10:38 | Operative Report ---
Operative Report Operative Report: Date of procedure: November 02, 2020 Pre-operative diagnosis: Patient desires permanent sterilization Post-operative diagnosis: Same with probable pelvic inflammatory disease with bilateral hydrosalpinx and pelvic adhesions Procedure name(s): Laparoscopic bilateral salpingectomy with lysis of adhesions and drainage of tubal abscess Surgeon: Chano Haynes MD [employer]: [] Anesthesia: General endotracheal EBL: Minimal Complications: None Findings: Patient with uterus approximately 8-10 weeks in size with omental adhesions and small intestine adhesions to the uterus and posterior cul-de-sac bilateral hydrosalpinx with adhesions of both adnexa to the posterior uterus and to omentum and small intestines. Patient with pus coming from bilateral fallopian tubes when manipulated. Specimen(s): Bilateral fallopian tubes Patient was brought in the operating room. General anesthesia was induced without difficulty. She was placed in dorsal lithotomy position. Prepped and draped in usual sterile manner. Her urinary bladder with was emptied with a red rubber catheter. Speculum placed in her vagina and Sargis uterine manipulator was placed for uterine manipulation without difficulty. Attention was then switched to the patient's abdomen. An infra-umbilical incision was made with a scalpel. This incision was spread with a hemostat. A 5 mm trocar was placed in this incision while lifting high the abdominal wall. Intra-abdominal presence was verified directly with the laparoscope. The patient was then insufflated to approximately 3 L of CO2 gas. The patient's findings as noted above. An accessory puncture was made suprapubically. The 8 mm trocar was placed through this incision under direct visualization with no evidence of internal organ damage. The adhesions of the omentum to the uterus and adnexa were bluntly exposing the bilateral hydrosalpinx inflammatory changes were noted. Doing a lysis of adhesions both fallopian tubes pus with excluded from the tubes consistent with probable pelvic inflammatory disease. The pelvis was then copiously irrigated and suction. Each of the fallopian tube were identified by its fimbriated end. Starting with the right fallopian tube approximately 1 to 2 cm from the cornea LigaSure device was used to cross sectional cut the tube. From this point the ligature device was used to cauterize and cut the mesosalpinx until the fimbriated end was reached detaching the tube. The fallopian tube was then removed through the accessory port which required extending the incision for this port and removing the enlarged fallopian tube. In pieces due to the attention was then switched to the contralateral tube. Same procedure was performed detaching that tube and removed it through the accessory port large size of the tube.. The remaining stump was inspected and found to be hemostatic. The patient's pelvis was copiously irrigated until was clear. At this time all instruments were removed. The patient was de- insufflated. The skin incisions were closed subcuticularly with 4-0 Vicryl. Marcaine was injected into the surgical incisions, for postoperative pain relief. The uterine manipulator was then removed and cultures were obtained from the cervix. The patient tolerated procedure well. She was awakened in the operating room and accompanied to the recovery room in good condition.
--- NOTE | 2020-11-02 10:40 | Short Stay Summary ---
Short Stay Documentation Date of service: 11/02/20 - History H&P: dictated Past Medical History: No medical history, other Past Surgical History: No surgical history Social history: full code, other (SEE HPI FOR DETAILS) - Allergies and Medications Current Medications: Allergies acetaminophen [From Tylenol] Allergy (Verified 05/09/20 21:20) Hives Home Medications Medication Instructions Recorded Confirmed Last Taken Type labetaloL [Labetalol 200mg TAB] 300 mg PO TID 10/19/20 11/02/20 1 Week Ago History ~10/26/20 DOXYCYCLINE Hyclate [Vibramycin 100 mg PO Q12HR #14 capsule 11/02/20 Unknown Rx CAP] Ketorolac [Toradol] 10 mg PO Q6H PRN #10 tablet 11/02/20 Unknown Rx Active Medications Celecoxib (Celecoxib 200 Mg Cap) 400 mg PO PREOP NR Stop: 11/02/20 13:00 Last Admin: 11/02/20 07:55 Dose: 400 mg Documented by: Hydromorphone HCl (Hydromorphone 1 Mg/1 Ml Inj) 0.25 mg IV Q10MIN PRN PRN Reason: Pain, Moderate (4-6) Stop: 11/02/20 23:00 Hydromorphone HCl (Hydromorphone 1 Mg/1 Ml Inj) 0.5 mg IV Q10MIN PRN PRN Reason: Pain , Severe (7-10) Stop: 11/02/20 23:00 Lactated Ringer's (Lactated Ringers) 1,000 mls @ 100 mls/hr IV DIRECT MARÍA ELENA Last Admin: 11/02/20 08:05 Dose: 100 mls/hr Documented by: Ceftriaxone Sodium (Rocephin/Ns 1 Gm/50 Ml) 1 gm in 50 mls @ 100 mls/hr IV ONCE ONE Stop: 11/02/20 11:29 Magnesium Oxide (Magnesium Oxide 400 Mg Tab) 400 mg PO ONCE NR Stop: 11/02/20 13:00 Last Admin: 11/02/20 07:55 Dose: 400 mg Documented by: Midazolam HCl (Midazolam 2 Mg/2 Ml Inj) 2 mg IV PREOP NR Stop: 11/02/20 23:59 Last Admin: 11/02/20 08:15 Dose: 2 mg Documented by: Ondansetron HCl (Ondansetron 4 Mg/2 Ml Inj) 4 mg IV ONCE PRN PRN Reason: Nausea And Vomiting Stop: 11/02/20 13:00 - Physical exam General appearance: no acute distress Integumentary: no rash HEENT: Atraumatic Lungs: Normal air movement Breasts: deferred Heart: Regular rate Gastrointestinal: tenderness (Appropriately postop), distended (Appropriate post laparoscopy) Female Genitourinary: normal Rectal Exam: deferred - Brief post op/procedure progress note Date of procedure: 11/02/20 (See dictated operative note for details) - Hospital course Hospital course: Patient was admitted underwent the above him procedure without any complications. Patient will be discharged with follow-up in office in 1-2 weeks for postop check. - Disposition Condition at discharge: Good Disposition: 01 HOME / SELF CARE / HOMELESS - Discharge Diagnoses (1) Encounter for sterilization Status: Acute Short Stay Discharge Plan Activity: advance as tolerated Diet: regular Wound: open to air Additional Instructions: Patient to call office for any fever, chills, nausea, vomiting or pain not controlled by pain medication. Follow up with: PRIMARY CARE, [Primary Care Provider] - 7 Days Prescriptions: Ketorolac [Toradol] 10 mg PO Q6H PRN #10 tablet PRN Reason: Pain DOXYCYCLINE Hyclate [Vibramycin CAP] 100 mg PO Q12HR #14 capsule
[2020-11-02] MEDS ORDERED: cefTRIAXone/NS 1 GM/50 ML 1 GM/50 ML BAG IV ONE (11:00)
--- NOTE | 2020-11-02 13:51 | Post Anesthesia Evaluation ---
- Post Anesthesia Evaluation Patient Participated: Yes Airway Patent: Yes Stable Respiratory Function: Yes Nausea/Vomiting: No Temp > 96.8F: Yes Pain Manageable: Yes Adequeate Hydration: Yes Anesthesia Complications: No Block Receding Appropriately: Not Applicable Patient on Ventilator: No
[2020-11-02 19:31] VITALS: BP 122/81
== END 2020-11-02 07:15 | disposition home or self-care (01) ==
LOC: OR 07:14
PROVIDERS: ATTEND Obstetrics & Gynecology
DX: Z30.2 Encounter for sterilization (principal); I10 Essential (primary) hypertension; Z79.899 Other long term (current) drug therapy; Z98.890 Other specified postprocedural states
CPT/HCPCS: 58661; 81025; 87591; 88302; J0696; J1100; J1170; J1885; J2250; J2405; J2704; J2710; J7120